=== PATIENT | male | born 1975 | race Caucasian/White ===

== ENCOUNTER 2016-08-23 07:34 | Emergency (ER) | payer OTHER ==
--- NOTE | 2016-08-23 08:25 | EDM.PDOC ---
ED HPI GENERAL MEDICAL PROBLEM - General Chief Complaint: Upper Extremity Injury/Pain Stated Complaint: LEFT ELBOW PAIN Time Seen by Provider: 08/23/16 08:00 Source of Information: Reports: Patient History Limitations: Reports: No Limitations - History of Present Illness INITIAL COMMENTS - FREE TEXT/NARRATIVE: History of present illness: []Patient presents with left elbow pain. He states he smacked on the concrete 2 days ago and is not getting any better. Taking Aleve for pain without much relief. He denies any numbness or tingling and states that when he bends his arm it feels tight. Review of systems: As per history of present illness and below otherwise all systems reviewed and negative. Past medical history: As per history of present illness and as reviewed below otherwise noncontributory. Surgical history: As per history of present illness and as reviewed below otherwise noncontributory. Social history: No reported history of drug or alcohol abuse. Family history: As per history of present illness and as reviewed below otherwise noncontributory. Physical exam: General: Well developed, well nourished in NAD HEENT: Atraumatic, normocephalic, pupils reactive, negative for conjunctival pallor or scleral icterus, mucous membranes moist, throat clear, neck supple, nontender, trachea midline. Lungs: Clear to auscultation, breath sounds equal bilaterally, chest nontender. Heart: S1S2, regular, negative for clicks, rubs, or JVD. Abdomen: Soft, nondistended, nontender. Negative for masses or hepatosplenomegaly. Negative for costovertebral tenderness. Pelvis: Stable nontender. Genitourinary: Deferred. Rectal: Deferred. Extremities: No signs of external trauma palpable tenderness over the left elbow limited range of motion on elbow flexion secondary to pain, negative for cords or calf pain. Neurovascular unremarkable. Neuro: Awake, alert, oriented. Cranial nerves II through XII unremarkable. Cerebellum unremarkable. Motor and sensory unremarkable throughout. Exam nonfocal. Diagnostics: []X-ray elbow no fracture or malalignment. Therapeutics: [] Impression: []Bone bruise elbow contusion Plan: []Ice to elbow Motrin for pain Definitive disposition and diagnosis as appropriate pending reevaluation and review of above. Left Elbow Pain Score (Numeric/FACES): 8 - Related Data Allergies Allergy/AdvReac Type Severity Reaction Status Date / Time bee Allergy Swelling Uncoded 08/23/16 07:54 Home Meds: Home Meds Naproxen Sodium [Aleve] 2 tab PO TID PRN 06/22/14 [History] Past Medical History Other Gastrointestinal History: abdominal hernia - Infectious Disease History Infectious Disease History: Reports: Chicken Pox - Past Surgical History GI Surgical History: Reports: Hernia, Abdominal Social & Family History - Family History Family Medical History: Noncontributory - Tobacco Use Smoking Status *Q: Former Smoker Years of Tobacco use: 20 Used Tobacco, but Quit: Yes Month Tobacco Last Used: 2 months ago - Caffeine Use Caffeine Use: Reports: Coffee Caffeine Use Comment: 4cups/day - Alcohol Use Days Per Week of Alcohol Use: 2 Number of Drinks Per Day: 8 Total Drinks Per Week: 16 - Recreational Drug Use Recreational Drug Use: No Review of Systems - Review of Systems Review Of Systems: See Below (See history of present illness) ED EXAM, GENERAL - Physical Exam Exam: See Below (See history of present illness) Course - Vital Signs Last Recorded V/S: Last Vital Signs Temp 36.4 C 08/23/16 07:50 Pulse 102 H 08/23/16 07:50 Resp 18 08/23/16 07:50 BP 154/101 H 08/23/16 07:50 Pulse Ox 97 08/23/16 07:50 Departure - Departure Time of Disposition: 09:06 Disposition: Home, Self-Care 01 Condition: good Clinical Impression: Left elbow contusion Qualifiers: Encounter type: initial encounter Qualified Code(s): S50.02XA - Contusion of left elbow, initial encounter - Discharge Information Forms: ED Department Discharge Additional Instructions: The following information is given to patients seen in the emergency department who are being discharged to home. This information is to outline your options for follow-up care. We provide all patients seen in our emergency department with a follow-up referral. The need for follow-up, as well as the timing and circumstances, are variable depending upon the specifics of your emergency department visit. If you don't have a primary care physician on staff, we will provide you with a referral. We always advise you to contact your personal physician following an emergency department visit to inform them of the circumstance of the visit and for follow-up with them and/or the need for any referrals to a consulting specialist. The emergency department will also refer you to a specialist when appropriate. This referral assures that you have the opportunity for follow-up care with a specialist. All of these measure are taken in an effort to provide you with optimal care, which includes your follow-up. Under all circumstances we always encourage you to contact your private physician who remains a resource for coordinating your care. When calling for follow-up care, please make the office aware that this follow-up is from your recent emergency room visit. If for any reason you are refused follow-up, please contact the [facility] Emergency Department at and asked to speak to the emergency department charge nurse.[facility] Ice to Shabana pearl for pain follow-up PMD as needed. Primary Care [address] [place] [id number]
--- NOTE | 2016-08-23 08:48 | CR ---
EXAMINATION: Left elbow HISTORY: Fall COMPARISON: None TECHNIQUE: 2 views FINDINGS/IMPRESSION: There is no acute osseous abnormality, dislocation, or fracture identified. Bon e mineralization and joint spaces appear normal.
[2016-08-23 09:20] VITALS: BP 135/70
== END 2016-08-23 09:19 | disposition home or self-care (01) ==
LOC: MW.ED 07:34
DX: S50.02XA Contusion of left elbow, initial encounter (principal); Z98.890 Other specified postprocedural states; Z87.891 Personal history of nicotine dependence; Z91.030 Bee allergy status; W22.8XXA Striking against or struck by other objects, initial encounter
CPT/HCPCS: 73070-26-LT; 73070-LT; 99282; 99283

== ENCOUNTER 2017-11-18 03:46 | Emergency (ER) | payer BC, OTHER ==
--- NOTE | 2017-11-18 03:50 | EDM.PDOC ---
ED HPI GENERAL MEDICAL PROBLEM - General Chief Complaint: Back Pain or Injury Stated Complaint: PAIN IN LEFT LEG- CAN BARELY WALK Time Seen by Provider: 11/18/17 03:48 Source of Information: Reports: Patient History Limitations: Reports: No Limitations - History of Present Illness INITIAL COMMENTS - FREE TEXT/NARRATIVE: HISTORY AND PHYSICAL: History of present illness: 42-year-old male presenting worsened department with chief complaint of left lower back pain rating into the left leg starting at 11 PM. Patient states that at approximately 11 PM he woke up and rolled and felt immediate pain in his left lower back radiating into his left lower leg to the knee. States that he had to roll out of bed. He takes some Aleve and laid on the couch but the pain did not improve. He denies any recent trauma or other significant back injuries. Denies any bowel or bladder incontinence. Otherwise patient is generally healthy and takes no daily medications. He has no medical allergies. On exam there is significant muscle spasms in the left paraspinal L4-S1. Patient is acutely tender to palpation in left paraspinal muscles as well as left sciatic area. No decreased in strength and station. Decreased range of motion secondary to pain. Review of systems: As per history of present illness and below otherwise all systems reviewed and negative. Past medical history: As per history of present illness and as reviewed below otherwise noncontributory. Surgical history: As per history of present illness and as reviewed below otherwise noncontributory. Social history: No reported history of drug or alcohol abuse. Family history: As per history of present illness and as reviewed below otherwise noncontributory. Physical exam: HEENT: Atraumatic, normocephalic, pupils reactive, negative for conjunctival pallor or scleral icterus, mucous membranes moist, throat clear, neck supple, nontender, trachea midline. Lungs: Clear to auscultation, breath sounds equal bilaterally, chest nontender. Heart: S1S2, regular, negative for clicks, rubs, or JVD. Abdomen: Soft, nondistended, nontender. Negative for masses or hepatosplenomegaly. Negative for costovertebral tenderness. Pelvis: Stable nontender. Genitourinary: Deferred. Rectal: Deferred. Extremities: Atraumatic, negative for cords or calf pain. Neurovascular unremarkable. Neuro: Awake, alert, oriented. Cranial nerves II through XII unremarkable. Cerebellum unremarkable. Motor and sensory unremarkable throughout. Exam nonfocal. Diagnostics: [] Therapeutics: Toradol 60 mg IM 1, and 25 mg Solu-Medrol IM 1, Flexeril prescription 10 mg by mouth 3 times a day #15 Impression: Lower back pain Lower back muscle spasm Possible sciatica Plan: Patient had improvement after Toradol as well as Solu-Medrol. He was discharged in good condition with a prescription for Flexeril 10 mg by mouth 3 times a day #15. Instructed to rest the area and follow-up with his primary care provider. He should return to the emergency department if he has any new or worsening symptoms as we discussed. Definitive disposition and diagnosis as appropriate pending reevaluation and review of above. Lower Back Pain Score (Numeric/FACES): 10 - Related Data Allergies Allergy/AdvReac Type Severity Reaction Status Date / Time bee Allergy Swelling Uncoded 08/23/16 07:54 Home Meds: Home Meds . [No Known Home Meds] 11/18/17 [History] Past Medical History Other Gastrointestinal History: abdominal hernia - Infectious Disease History Infectious Disease History: Reports: Chicken Pox - Past Surgical History GI Surgical History: Reports: Hernia, Abdominal Social & Family History - Family History Family Medical History: Noncontributory - Caffeine Use Caffeine Use: Reports: Coffee Caffeine Use Comment: 4cups/day ED ROS GENERAL - Review of Systems Review Of Systems: ROS reveals no pertinent complaints other than HPI. ED EXAM, GENERAL - Physical Exam Exam: See Below Course - Vital Signs Last Recorded V/S: Last Vital Signs Temp 97.6 F 11/18/17 03:57 Pulse 104 H 11/18/17 03:57 Resp 18 11/18/17 03:57 BP 146/101 H 11/18/17 03:57 Pulse Ox 97 11/18/17 03:57 - Orders/Labs/Meds Meds: Medications Discontinued Medications Generic Name Dose Route Start Last Admin Trade Name Khari PRN Reason Stop Dose Admin Ketorolac Tromethamine 60 mg 11/18/17 04:28 11/18/17 05:07 Toradol IM 11/18/17 04:29 60 mg ONETIME ONE Administration Methylprednisolone Sodium Succinate 125 mg 11/18/17 04:28 11/18/17 05:07 Solu-Medrol IM 11/18/17 04:29 125 mg ONETIME ONE Administration Departure - Departure Time of Disposition: 05:33 Disposition: Home, Self-Care 01 Condition: Good Clinical Impression: Muscle spasm of back Lower back pain Qualifiers: Chronicity: acute Back pain laterality: left Sciatica presence: with sciatica Sciatica laterality: sciatica of left side Qualified Code(s): M54.42 - Lumbago with sciatica, left side - Discharge Information Referrals: PCP,None [Primary Care Provider] - Forms: ED Department Discharge Additional Instructions: My general discharge The following information is given to patients seen in the emergency department who are being discharged to home. This information is to outline your options for follow-up care. We provide all patients seen in our emergency department with a follow-up referral. The need for follow-up, as well as the timing and circumstances, are variable depending upon the specifics of your emergency department visit. If you don't have a primary care physician on staff, we will provide you with a referral. We always advise you to contact your personal physician following an emergency department visit to inform them of the circumstance of the visit and for follow-up with them and/or the need for any referrals to a consulting specialist. The emergency department will also refer you to a specialist when appropriate. This referral assures that you have the opportunity for follow-up care with a specialist. All of these measure are taken in an effort to provide you with optimal care, which includes your follow-up. Under all circumstances we always encourage you to contact your private physician who remains a resource for coordinating your care. When calling for follow-up care, please make the office aware that this follow-up is from your recent emergency room visit. If for any reason you are refused follow-up, please contact the [facility] Emergency Department at and asked to speak to the emergency department charge nurse. [facility] [address] [place] [id number] [facility] [address] [place] [address] Please follow-up with primary care provider. Numbers above are available and tell them that you were seen in the emergency department and they wished for you to be followed up with as soon as possible. Take medication as prescribed Return to emergency department if any new or worsening symptoms as we discussed.
[2017-11-18] MEDS ORDERED: methylPREDNISolone Sodium Succinate 125 MG/2 ML SDV IM ONE (04:28)
[2017-11-18] MEDS ORDERED: Ketorolac 60 MG/2 ML SDV IM ONE (04:28)
[2017-11-18 05:49] VITALS: BP 137/87
== END 2017-11-18 05:52 | disposition home or self-care (01) ==
LOC: MW.ED 03:46
DX: M54.42 Lumbago with sciatica, left side (principal); M62.830 Muscle spasm of back
CPT/HCPCS: 96372; 99283; J1885; J2930

== ENCOUNTER 2023-02-11 07:29 | Day surgery (SDC) | payer BC ==
[~2023-02-11 07:29] MED LIST: Lactated Ringers 1,000 ML IV SCH
[2023-02-11] MEDS ORDERED: dexmedeTOMIDine HCl 200 MCG/2 ML SDV IV ONE (07:30)
[2023-02-11] MEDS ORDERED: propofoL 50 ML ONE (08:14)
[2023-02-11] MEDS ORDERED: Lidocaine 2% 5 ML SDV ONE (08:56)
[2023-02-11] MEDS ORDERED: Lactated Ringers 1,000 ML IV SCH (09:45)
[2023-02-11 09:55] VITALS: PULSE 72
[2023-02-11 10:39] VITALS: BP 104/63
== END 2023-02-11 10:10 | disposition home or self-care (01) ==
LOC: MW.SDS 07:29
PROVIDERS: ATTEND Surgery
DX: Z12.11 Encounter for screening for malignant neoplasm of colon (principal); K40.90 Unilateral inguinal hernia, without obstruction or gangrene, not specified as recurrent; E11.9 Type 2 diabetes mellitus without complications; F10.10 Alcohol abuse, uncomplicated; F17.290 Nicotine dependence, other tobacco product, uncomplicated; F17.210 Nicotine dependence, cigarettes, uncomplicated; Z79.84 Long term (current) use of oral hypoglycemic drugs; Z79.899 Other long term (current) drug therapy; Z91.030 Bee allergy status; Z80.0 Family history of malignant neoplasm of digestive organs
CPT/HCPCS: 45378; 82947; J2704; J7120; J3490

== ENCOUNTER 2024-01-28 08:02 | Emergency (ER) | payer BC ==
[2024-01-28] MEDS: Ketorolac 30 MG/ML SDV IM ONE ×2 (08:54→08:56)
[2024-01-28 09:51] VITALS: BP 124/85; PULSE 82
== END 2024-01-28 09:51 | disposition home or self-care (01) ==
LOC: MW.ED 08:02
DX: M25.461 Effusion, right knee (principal); E11.9 Type 2 diabetes mellitus without complications; Z79.84 Long term (current) use of oral hypoglycemic drugs; Z91.030 Bee allergy status
CPT/HCPCS: 73562; 96372; 99283; J1885

== ENCOUNTER 2024-07-31 11:46 | Emergency (ER) | payer MEDICAID ==
[2024-07-31 12:03] VITALS: BP 149/113; PULSE 94
[2024-07-31] MEDS: Ketorolac 60 MG/2 ML SDV IM ONE (13:00)
[2024-07-31 13:19] LABS: BASOPHILS ABSOLUTE AUTO 0.05 K/uL (0.00-0.20); BASOPHILS PERCENT AUTO 0.5 % (0.0-1.0); EOSINOPHILS ABSOLUTE AUTO 0.08 K/uL (0.00-0.45); EOSINOPHILS PERCENT AUTO 0.9 % (0.0-6.0); HEMATOCRIT 46.7 % (42.0-52.0); HEMOGLOBIN 15.7 g/dL (14.0-18.0); IMMATURE GRAN PERCENT AUTO 1.1 % (0.0-0.4); LYMPHOCYTES ABSOLUTE AUTO 2.98 K/uL (1.00-4.80); LYMPHOCYTES PERCENT AUTO 32.3 % (24.0-44.0); MEAN CORPUSCULAR HEMOGLOBIN 29.8 pg (28.0-32.0); MEAN CORPUSCULAR HGB CONC 33.6 g/dL (32.0-36.0); MEAN CORPUSCULAR VOLUME 88.8 fL (83.0-99.0); MEAN PLATELET VOLUME 8.3 fL (9.4-12.4); MONOCYTES ABSOLUTE AUTO 0.68 K/uL (0.00-0.80); MONOCYTES PERCENT AUTO 7.4 % (0.0-8.0); NEUTROPHILS ABSOLUTE AUTO 5.33 K/uL (1.80-7.70); NEUTROPHILS PERCENT AUTO 57.8 % (41.0-71.0); PLATELET COUNT,PLT 358 K/uL (150-400); RED BLOOD CELL COUNT 5.26 M/uL (4.52-5.90); WHITE BLOOD CELL COUNT,WBC 9.22 K/uL (3.9-11.3)
== END 2024-07-31 13:54 | disposition home or self-care (01) ==
LOC: MW.ED 11:46
DX: L02.412 Cutaneous abscess of left axilla (principal); M25.512 Pain in left shoulder; E11.9 Type 2 diabetes mellitus without complications; Z91.030 Bee allergy status; Z79.84 Long term (current) use of oral hypoglycemic drugs; Z79.899 Other long term (current) drug therapy; Z75.3 Unavailability and inaccessibility of health-care facilities
CPT/HCPCS: 36415; 85025; 96372; 99283; J1885

== ENCOUNTER 2024-08-26 00:49 | Emergency (ER) | payer MEDICAID ==
[2024-08-26] MEDS ORDERED: Sodium Chloride 0.9% 10 ML Syringe FLUSH PRN (01:30)
[2024-08-26] MEDS ORDERED: Sodium Chloride 0.9% 2.5 ML Syringe FLUSH PRN (01:30)
[2024-08-26 01:46] LABS: BASOPHILS ABSOLUTE AUTO 0.04 K/uL (0.00-0.20); BASOPHILS PERCENT AUTO 0.4 % (0.0-1.0); EOSINOPHILS ABSOLUTE AUTO 0.11 K/uL (0.00-0.45); HEMATOCRIT 39.8 % (42.0-52.0); IMMATURE GRAN ABSOLUTE AUTO 0.07 K/uL (0.00-0.05); IMMATURE GRAN PERCENT AUTO 0.7 % (0.0-0.4); LYMPHOCYTES ABSOLUTE AUTO 3.05 K/uL (1.00-4.80); LYMPHOCYTES PERCENT AUTO 28.9 % (24.0-44.0); MEAN CORPUSCULAR HEMOGLOBIN 30.6 pg (28.0-32.0); MEAN CORPUSCULAR HGB CONC 35.2 g/dL (32.0-36.0); MEAN CORPUSCULAR VOLUME 87.1 fL (83.0-99.0); MEAN PLATELET VOLUME 8.2 fL (9.4-12.4); MONOCYTES ABSOLUTE AUTO 0.85 K/uL (0.00-0.80); NEUTROPHILS ABSOLUTE AUTO 6.44 K/uL (1.80-7.70); PLATELET COUNT,PLT 303 K/uL (150-400); RED BLOOD CELL COUNT 4.57 M/uL (4.52-5.90); WHITE BLOOD CELL COUNT,WBC 10.56 K/uL (3.9-11.3)
[2024-08-26 02:10] LABS: C-REACTIVE PROTEIN 2.07 mg/dL (<0.3); CALCIUM 9.7 mg/dL (8.5-10.1); CARBON DIOXIDE,CO2 29.2 mmol/L (21.0-32.0); CREATININE 1.1 mg/dL (0.8-1.3); EST CRCL DRUG DOSING (CG) 82.03 mL/min; POTASSIUM,K 3.6 mmol/L (3.5-5.1)
[2024-08-26 02:35] VITALS: BP 148/84; PULSE 89
== END 2024-08-26 02:33 | disposition home or self-care (01) ==
LOC: MW.ED 00:49
DX: M86.9 Osteomyelitis, unspecified (principal); Z91.030 Bee allergy status; Z79.84 Long term (current) use of oral hypoglycemic drugs; Z79.899 Other long term (current) drug therapy
CPT/HCPCS: 36415; 80048; 85025; 85652; 86140; 87040; 87077; 87154; 87186; 99283